=== PATIENT | female | born 1960 | race African-American/Black ===

== ENCOUNTER 2018-07-07 05:43 | Inpatient (IN) ==
[2018-07-06 13:26] LABS: Basophils % 0.5 % (0.0-0.8); Eosinophils # 0.1 10*3/uL (0.0-0.87); Eosinophils % 1.4 % (0.00-10.9); Hematocrit 38.3 VOL% (35.7-47.0); Immature Granulocytes % 0.3 %; Immature Granulocytes Absolute 0.02 #; Lymphocytes # 3.4 10*3/uL (1.4-4.0); Lymphocytes % 44.1 % (21.3-54.2); Mean Corpuscular HGB Conc 31.3 GM/DL (32-36); Mean Corpuscular Hemoglobin 27 PG (27-34); Mean Corpuscular Volume 87.2 FL (87-102); Mean Platelet Volume 10.2 FL (9.6-12.0); Monocytes # 0.3 10*3/uL (0.11-0.8); Monocytes % 3.4 % (1.7-12.7); Neutrophils # 3.8 10*3/uL (1.4-7.4); Neutrophils % 50.3 % (38.7-73.9); Platelet Count 264 T/CUMM (130-400); Red Blood Count 4.39 MC/CUMM (3.8-5.5); Red Cell Distribution Width 14.1 % (9.3-17.3); White Blood Count 7.6 T/CUMM (4-12)
[2018-07-06 13:31] LABS: Apearance,Urine CLEAR (Clear); Bilirubin,Urine Negative (Negative); Blood, Urine Negative (Negative); Glucose,Urine (UA) >=500 mg/dL (Negative); Ketones,Urine Negative (Negative); Nitrite,Urine Negative (Negative); Protein,Urine Negative; RBC,Urine <1 /HPF (0-4); Squamous Epithelial Cell,Urine Occasional /HPF (0-10); Urine Color Straw (Yellow); Urine Specific Gravity 1.009 (1.001-1.035); Urine Urobilinogen < 2.0 EU/DL (0.2-1.0); WBC,Urine <1 /HPF (0-6)
[2018-07-06 13:36] LABS: INR 0.9; Partial Thromboplastin Time 27.4 SECS (0-40)
[2018-07-06 13:50] LABS: Calcium 9.1 MG/DL (8.5-10.1); Osmolality,Calculated 283.7 MOS/KG (273-304); Potassium 4.3 MMOL/L (3.5-5.1)
[~2018-07-07 05:43] MED LIST: LACTATED RINGERS 1,000 ML IV SCH; PAPAVERINE 60 MG/2 ML VIAL ONE; SODIUM CHLORIDE 0.9% 1,000 ML IV PRN; TISSUE ADHESIVE 1 EACH APPLICATOR TOP ONE; VANCOMYCIN 1,000 MG VIAL ONE
[2018-07-07] MEDS ORDERED: CEFUROXIME 1,500 MG VIAL ONE (06:07)
[2018-07-07] MEDS ORDERED: DIAZEPAM 5 MG TABLET ONE (06:37)
[2018-07-07] MEDS ORDERED: PANTOPRAZOLE 40 MG TABLET PO ONE (06:37)
[2018-07-07] MEDS ORDERED: DIAZEPAM 5 MG TABLET PO STA (06:39)
[2018-07-07] MEDS ORDERED: PANTOPRAZOLE 40 MG TABLET PO STA (06:40)
[2018-07-07 07:36] LABS: ABG Base Excess 3.4 MMOL/L (-2.5-2.5); ABG HCO3 27.5 MMOL/L (20-26); ABG PCO2 41.9 MM HG (35-48); ABG PH 7.432 (7.35-7.45); ABG TCO2 25.2 MMOL/L (23-27); Glucose Heart Surgery 120 MG/DL (74-106); Hematocrit Heart Surgery 32.6 PERCENT (37-47); Hemoglobin Heart Surgery 10.5 G/DL (12.0-16.0); Ionized Calcium Arterial 1.15 MMOL/L (1.21-1.46); PCO2 Patient Temp Arterial 41.9 MMHG; PH Patient Temp Arterial 7.432; Patient Temperature 37 CELCIUS; Potassium Heart/CVR 3.4 MMOL/L (3.5-5.1); Sodium Heart/CVR 140 MMOL/L (135-145)
[2018-07-07] MEDS ORDERED: NITROPRUSSIDE 50 MG/2 ML VIAL ONE (07:44)
[2018-07-07] MEDS ORDERED: ALBUMIN 5% 12.5 GM/250 ML VIAL IV ONE (07:45)
[2018-07-07] MEDS ORDERED: EPINEPHrine 1 MG/10 ML SYRINGE ONE (07:45)
[2018-07-07] MEDS ORDERED: CALCIUM CHLORIDE 1,000 MG/10 ML SYRINGE IV ONE (07:45)
[2018-07-07] MEDS ORDERED: POTASSIUM CHLORIDE RIDER 100 ML IV ONE (07:45)
[2018-07-07] MEDS ORDERED: PHENYLEPHRINE DRIP 0 MG/0 ML PREMIX IV ONE (07:45)
[2018-07-07 07:51] LABS: Apearance,Urine CLEAR (Clear); Bilirubin,Urine Negative (Negative); Blood, Urine Negative (Negative); Glucose,Urine (UA) Negative (Negative); Ketones,Urine Negative (Negative); Nitrite,Urine Negative (Negative); Protein,Urine Negative; RBC,Urine 1 /HPF (0-4); Squamous Epithelial Cell,Urine Occasional /HPF (0-10); Urine Color Yellow (Yellow); Urine Specific Gravity 1.016 (1.001-1.035); Urine Urobilinogen < 2.0 EU/DL (0.2-1.0); WBC,Urine <1 /HPF (0-6)
[2018-07-07 09:31] LABS: Hematocrit Heart Surgery 19.2 PERCENT (37-47); PCO2 Patient Temp Venous 33.4 MM HG; PH Patient Temp Venous 7.508; PO2 Patient Temp Venous 35.3 MM HG; Potassium Heart/CVR 4.6 MMOL/L (3.5-5.1); VBG Base Excess 3.6 MEQ/L (0-4); VBG HCO3 27.4 MEQ/L (24-28); VBG PCO2 36.8 MMHG (41-51); VBG PH 7.478; VBG PO2 40.6 MMHG (17-40)
[2018-07-07 09:32] LABS: Hemoglobin Heart Surgery 6.1 G/DL (12.0-16.0)
[2018-07-07 10:00] LABS: Hematocrit Heart Surgery 20.4 PERCENT (37-47); Hemoglobin Heart Surgery 6.5 G/DL (12.0-16.0); PCO2 Patient Temp Venous 36.9 MM HG; PH Patient Temp Venous 7.471; PO2 Patient Temp Venous 40.1 MM HG; Potassium Heart/CVR 4.4 MMOL/L (3.5-5.1); VBG Base Excess 3.2 MEQ/L (0-4); VBG PCO2 36.9 MMHG (41-51); VBG PH 7.471; VBG PO2 40.1 MMHG (17-40)
[2018-07-07] MEDS ORDERED: TISSUE ADHESIVE 1 EACH APPLICATOR TOP ONE (10:06)
[2018-07-07 10:30] LABS: Hematocrit Heart Surgery 26.3 PERCENT (37-47); Hemoglobin Heart Surgery 8.4 G/DL (12.0-16.0); PCO2 Patient Temp Venous 40.4 MM HG; PH Patient Temp Venous 7.425; PO2 Patient Temp Venous 46.9 MM HG; Potassium Heart/CVR 4.3 MMOL/L (3.5-5.1); VBG PCO2 40.4 MMHG (41-51); VBG PH 7.425; VBG PO2 46.9 MMHG (17-40)
[2018-07-07] MEDS ORDERED: THROMBIN TOPICAL (RECOMBINANT) 5,000 UNIT VIAL TOP ONE (10:35)
[2018-07-07 11:42] LABS: ABG Base Excess -6.4 MMOL/L (-2.5-2.5); ABG HCO3 19.2 MMOL/L (20-26); ABG Oxygen Saturation 95.6 % (95-100); ABG PH 7.254 (7.35-7.45); ABG PO2 89.2 MM HG (80-95); ABG TCO2 19.1 MMOL/L (23-27); Glucose Heart Surgery 385 MG/DL (74-106); Hematocrit Heart Surgery 33.1 PERCENT (37-47); Hemoglobin Heart Surgery 10.7 G/DL (12.0-16.0); Ionized Calcium Arterial 1.37 MMOL/L (1.21-1.46); PH Patient Temp Arterial 7.254; PO2 Patient Temp Arterial 89.2 MM HG; Patient Temperature 37 CELCIUS; Potassium Heart/CVR 3.5 MMOL/L (3.5-5.1); Sodium Heart/CVR 135 MMOL/L (135-145)
[2018-07-07] MEDS ORDERED: CALCIUM CHLORIDE 1,000 MG/10 ML VIAL IV ONE ×2 (11:43→13:40)
[2018-07-07] MEDS ORDERED: DOBUTamine 500 MG/250 ML PREMIX IV ONE (12:00)
[2018-07-07] MEDS ORDERED: DEXTROSE 5% KCL 20 MEQ 20 MEQ/1,000 ML BAG IV ONE (12:53)
[2018-07-07] MEDS ORDERED: ALBUMIN 25% 25 GM/100 ML VIAL IV ONE (12:54)
[2018-07-07] MEDS ORDERED: PROTAMINE SULFATE 50 MG/5 ML VIAL IV ONE (12:54)
[2018-07-07] MEDS ORDERED: MANNITOL 12.5 GM/50 ML VIAL IV ONE (12:54)
[2018-07-07] MEDS ORDERED: SODIUM BICARBONATE 50 MEQ/50 ML SYRINGE IV ONE ×2 (12:54→13:40)
[2018-07-07] MEDS ORDERED: MAGNESIUM SULFATE 10 GM/20 ML VIAL IV ONE (12:54)
[2018-07-07] MEDS ORDERED: methylPREDNISolone SOD SUC 1,000 MG/8 ML VIAL ONE (12:54)
[2018-07-07] MEDS ORDERED: FUROSEMIDE 20 MG/2 ML VIAL ONE (12:54)
[2018-07-07] MEDS ORDERED: HEPARIN 10,000 UNIT/10 ML VIAL ONE (12:55)
[2018-07-07] MEDS ORDERED: MAGNESIUM SULF RIDER 2 GM in PREMIX 1 EACH IV PRN (13:04)
[2018-07-07] MEDS ORDERED: CALCIUM CHLORIDE 1,000 MG/10 ML SYRINGE IV PRN (13:04)
[2018-07-07] MEDS ORDERED: CHLORHEXIDINE 4% SOLN 118 ML BOTTLE TOP PRN (13:04)
[2018-07-07] MEDS ORDERED: MAGNESIUM SULF RIDER 4 GM in PREMIX 1 EACH IV PRN (13:04)
[2018-07-07] MEDS ORDERED: ACETAMINOPHEN 650 MG SUPP RECTAL PRN (13:04)
[2018-07-07] MEDS ORDERED: ONDANSETRON 4 MG/2 ML VIAL IV PRN (13:04)
[2018-07-07] MEDS ORDERED: DEXTROSE 50% 25 GM/50 ML SYRINGE IV PRN ×2 (13:04)
[2018-07-07] MEDS ORDERED: SUFentanil 250 MCG/5 ML AMP ONE (13:36)
[2018-07-07] MEDS ORDERED: MIDAZOLAM 10 MG/2 ML VIAL ONE (13:37)
[2018-07-07] MEDS ORDERED: ASPIRIN CHEW 81 MG TABLET PO ONE ×2 (13:38→13:49)
[2018-07-07] MEDS ORDERED: HEPARIN/NACL 0.9% 2 UNITS/ML 500 ML IV ONE (13:40)
[2018-07-07] MEDS ORDERED: SEVOFLURANE 1 UNIT/15 MINUTE INH ONE (13:40)
[2018-07-07] MEDS ORDERED: PHENYLEPHRINE DRIP 20 MG/250 ML PREMIX IV ONE (13:40)
[2018-07-07] MEDS ORDERED: MINERAL OIL/PETROLATUM OPH OINT 3.5 GM TUBE ONE (13:41)
[2018-07-07] MEDS ORDERED: AMINOCAPROIC ACID 5,000 MG/20 ML VIAL IV ONE (13:41)
[2018-07-07] MEDS ORDERED: ALBUTEROL INHALER 8 GM INH ONE (13:41)
[2018-07-07] MEDS ORDERED: VECURONIUM 10 MG VIAL IV ONE (13:41)
[2018-07-07] MEDS ORDERED: ETOMIDATE 40 MG/20 ML VIAL IV ONE (13:41)
[2018-07-07] MEDS ORDERED: PHENYLEPHRINE 1 MG/10 ML SYRINGE IV ONE (13:42)
[2018-07-07] MEDS ORDERED: SODIUM CHLORIDE 0.9% 1,000 ML IV ONE (13:42)
[2018-07-07] MEDS ORDERED: LACTATED RINGERS 1,000 ML IV ONE (13:42)
[2018-07-07] MEDS ORDERED: MILRINONE 20 MG/100 ML PREMIX IV ONE (13:49)
[2018-07-07 13:55] LABS: Basophils % 0.2 % (0.0-0.8); Eosinophils % 0.1 % (0.00-10.9); Hematocrit 36.1 VOL% (35.7-47.0); Immature Granulocytes % 0.9 %; Immature Granulocytes Absolute 0.17 #; Lymphocytes # 1.4 10*3/uL (1.4-4.0); Lymphocytes % 7.6 % (21.3-54.2); Mean Corpuscular HGB Conc 33.2 GM/DL (32-36); Mean Corpuscular Hemoglobin 29 PG (27-34); Mean Corpuscular Volume 87.6 FL (87-102); Mean Platelet Volume 10.5 FL (9.6-12.0); Monocytes # 0.6 10*3/uL (0.11-0.8); Monocytes % 3.1 % (1.7-12.7); Neutrophils # 16.4 10*3/uL (1.4-7.4); Neutrophils % 88.1 % (38.7-73.9); Platelet Count 147 T/CUMM (130-400); Red Blood Count 4.12 MC/CUMM (3.8-5.5); Red Cell Distribution Width 13.8 % (9.3-17.3); White Blood Count 18.6 T/CUMM (4-12)
[2018-07-07 14:05] LABS: ABG Base Excess -1.1 MMOL/L (-2.5-2.5); ABG HCO3 23.4 MMOL/L (20-26); ABG Oxygen Saturation 96.3 % (95-100); ABG PCO2 31.8 MM HG (35-48); ABG PH 7.449 (7.35-7.45); ABG PO2 78.8 MM HG (80-95); ABG TCO2 19.5 MMOL/L (23-27); Glucose Heart Surgery 303 MG/DL (74-106); Hematocrit Heart Surgery 36.2 PERCENT (37-47); Hemoglobin Heart Surgery 11.8 G/DL (12.0-16.0); Potassium Heart/CVR 3.5 MMOL/L (3.5-5.1)
[2018-07-07] MEDS: SODIUM CHLORIDE 0.45% 1,000 ML IV SCH ×2 (14:17→14:18)
[2018-07-07] MEDS: MILRINONE 20 MG/100 ML PREMIX IV SCH ×2 (14:18→21:59)
[2018-07-07 14:19] LABS: Blood Urea Nitrogen 10 MG/DL (7-18); Calcium 9.4 MG/DL (8.5-10.1); Glucose 297 MG/DL (74-106); Potassium 3.6 MMOL/L (3.5-5.1); Sodium 143 MMOL/L (136-145)
[2018-07-07] MEDS: ALBUMIN 5% 12.5 GM in PREMIX 1 EACH IV PRN ×3 (14:20→16:15)
[2018-07-07 14:27] LABS: Lactic Acid 5.1 MMOL/L (0.4-2.0)
[2018-07-07] MEDS: POTASSIUM CHLORIDE RIDER 20 MEQ in PREMIX 1 EACH IV PRN ×3 (14:29→22:56)
[2018-07-07 14:44] LABS: PT Patient Result 11.3 SECS; Partial Thromboplastin Time 33.1 SECS (0-40)
[2018-07-07] MEDS: SODIUM CHLORIDE 0.9% 250 ML IV PRN (15:00)
[2018-07-07] MEDS ORDERED: INSULIN REGULAR DRIP 100 ML IV PRN (15:00)
[2018-07-07] MEDS: POTASSIUM CHLORIDE RIDER 10 MEQ in PREMIX 1 EACH IV PRN (15:49)
[2018-07-07] MEDS: INSULIN REGULAR 100 UNIT/ML IV PRN ×2 (16:24→19:10)
[2018-07-07] MEDS ORDERED: LACTATED RINGERS 500 ML IV ONE (18:22)
[2018-07-07] MEDS: MORPHINE 4 MG/1 ML VIAL IV PRN (19:13)
[2018-07-07] MEDS: CHLORHEXIDINE 0.12% ORAL RINSE 60 ML BOTTLE SWISH/SPIT SCH (21:01)
[2018-07-07] MEDS: CEFUROXIME INJ 1,500 MG in SYRINGE 1 EACH IV SCH (21:01)
[2018-07-07 22:15] LABS: ABG Base Excess 1.5 MMOL/L (-2.5-2.5); ABG HCO3 25.7 MMOL/L (20-26); ABG Oxygen Saturation 96.4 % (95-100); ABG PCO2 41.1 MM HG (35-48); ABG PH 7.412 (7.35-7.45); ABG TCO2 23.6 MMOL/L (23-27); Glucose Heart Surgery 82 MG/DL (74-106); Hemoglobin Heart Surgery 10.7 G/DL (12.0-16.0); Potassium Heart/CVR 3.4 MMOL/L (3.5-5.1)
[2018-07-07 22:36] LABS: ABG Base Excess 1.8 MMOL/L (-2.5-2.5); ABG Oxygen Saturation 96.6 % (95-100); ABG PH 7.449 (7.35-7.45); ABG PO2 80.8 MM HG (80-95); ABG TCO2 23.1 MMOL/L (23-27); Glucose Heart Surgery 86 MG/DL (74-106); Hematocrit Heart Surgery 32.3 PERCENT (37-47); Hemoglobin Heart Surgery 10.5 G/DL (12.0-16.0); Potassium Heart/CVR 3.8 MMOL/L (3.5-5.1)
[2018-07-07 23:26] LABS: ABG Base Excess 0.7 MMOL/L (-2.5-2.5); ABG Oxygen Saturation 96.3 % (95-100); ABG PCO2 40.2 MM HG (35-48); ABG PH 7.407 (7.35-7.45); ABG PO2 83.4 MM HG (80-95); Glucose Heart Surgery 104 MG/DL (74-106); Hematocrit Heart Surgery 31.6 PERCENT (37-47); Hemoglobin Heart Surgery 10.2 G/DL (12.0-16.0); Potassium Heart/CVR 4.7 MMOL/L (3.5-5.1)
[2018-07-08] MEDS: MORPHINE 4 MG/1 ML VIAL IV PRN ×3 (03:29→16:52)
[2018-07-08] MEDS: SODIUM CHLORIDE 0.45% 1,000 ML IV SCH ×2 (03:37→10:37)
[2018-07-08 04:41] LABS: Basophils % 0.1 % (0.0-0.8); Hematocrit 29.9 VOL% (35.7-47.0); Hemoglobin 9.6 GM/DL (12.0-16.0); Immature Granulocytes % 0.7 %; Immature Granulocytes Absolute 0.14 #; Lymphocytes # 2.7 10*3/uL (1.4-4.0); Lymphocytes % 12.7 % (21.3-54.2); Mean Corpuscular HGB Conc 32.1 GM/DL (32-36); Mean Corpuscular Hemoglobin 28 PG (27-34); Mean Corpuscular Volume 88.2 FL (87-102); Mean Platelet Volume 11.1 FL (9.6-12.0); Monocytes # 0.8 10*3/uL (0.11-0.8); Monocytes % 3.8 % (1.7-12.7); Neutrophils # 17.5 10*3/uL (1.4-7.4); Neutrophils % 82.7 % (38.7-73.9); Platelet Count 122 T/CUMM (130-400); Red Blood Count 3.39 MC/CUMM (3.8-5.5); Red Cell Distribution Width 14.1 % (9.3-17.3); White Blood Count 21.2 T/CUMM (4-12)
[2018-07-08 04:51] LABS: Calcium 8.2 MG/DL (8.5-10.1); Potassium 4.5 MMOL/L (3.5-5.1)
[2018-07-08] MEDS: ALBUMIN 5% 12.5 GM in PREMIX 1 EACH IV PRN ×3 (05:43→09:37)
[2018-07-08] MEDS: SODIUM CHLORIDE 0.9% 250 ML IV PRN (05:44)
[2018-07-08 05:52] LABS: Band Neutrophils 3 % (0-10); Lymphocytes 10 % (20-55); Segmented Neutrophils 86 % (50-85)
[2018-07-08 05:53] LABS: Platelet Estimate Adequate; Total Cells Counted 100
[2018-07-08] MEDS ORDERED: LACTATED RINGERS 500 ML IV ONE (08:15)
[2018-07-08] MEDS ORDERED: METOCLOPRAMIDE 10 MG/10 ML UDCUP PO PRN (08:36)
[2018-07-08] MEDS ORDERED: SIMETHICONE CHEW 125 MG TABLET PO PRN (08:37)
[2018-07-08] MEDS: FUROSEMIDE 40 MG TABLET PO SCH (08:55)
[2018-07-08] MEDS: CLOPIDOGREL 75 MG TABLET PO SCH (09:36)
[2018-07-08] MEDS: PANTOPRAZOLE 40 MG VIAL IV SCH (09:37)
[2018-07-08] MEDS: ASPIRIN EC 325 MG TABLET PO SCH (09:37)
[2018-07-08] MEDS: CHLORHEXIDINE 0.12% ORAL RINSE 60 ML BOTTLE SWISH/SPIT SCH ×2 (09:37→21:15)
[2018-07-08] MEDS: CEFUROXIME INJ 1,500 MG in SYRINGE 1 EACH IV SCH ×2 (09:43→20:12)
[2018-07-08] MEDS ORDERED: DOBUTamine 500 MG/250 ML PREMIX IV ONE (11:50)
[2018-07-08] MEDS: DOBUTamine 500 MG/250 ML PREMIX IV SCH (11:57)
[2018-07-08] MEDS: INSULIN REGULAR 100 UNIT/ML SUBCUT SCH ×4 (12:15→23:40)
[2018-07-08] MEDS: MILRINONE 20 MG/100 ML PREMIX IV SCH (14:10)
[2018-07-08] MEDS ORDERED: CALCIUM GLUCONATE 1,000 MG in SODIUM CHLORIDE 0.9% 100 ML IV ONE (14:14)
[2018-07-08] MEDS: oxyCODONE/ACETAMINOPHEN 5-325 MG TABLET PO PRN ×2 (14:32→20:13)
[2018-07-08 16:55] LABS: ABG Base Excess -2.5 MMOL/L (-2.5-2.5); ABG HCO3 22.2 MMOL/L (20-26); ABG Oxygen Saturation 88.5 % (95-100); ABG PCO2 33.4 MM HG (35-48); ABG PH 7.415 (7.35-7.45); ABG PO2 57.5 MM HG (80-95); ABG TCO2 19.7 MMOL/L (23-27)
[2018-07-08 17:18] LABS: Lactic Acid 3.3 MMOL/L (0.4-2.0)
[2018-07-08] MEDS: AMITRIPTYLINE 25 MG TABLET PO SCH (20:13)
[2018-07-08] MEDS: ATORVASTATIN 40 MG TABLET PO SCH (20:13)
[2018-07-08] MEDS: MORPHINE 10 MG/1 ML VIAL IV PRN (23:31)
[2018-07-09 03:19] LABS: Basophils % 0.1 % (0.0-0.8); Hematocrit 27.9 VOL% (35.7-47.0); Hemoglobin 8.7 GM/DL (12.0-16.0); Immature Granulocytes % 0.6 %; Immature Granulocytes Absolute 0.11 #; Lymphocytes # 4.7 10*3/uL (1.4-4.0); Lymphocytes % 25.6 % (21.3-54.2); Mean Corpuscular HGB Conc 31.2 GM/DL (32-36); Mean Corpuscular Hemoglobin 28 PG (27-34); Mean Corpuscular Volume 90.9 FL (87-102); Mean Platelet Volume 11.3 FL (9.6-12.0); Monocytes # 0.8 10*3/uL (0.11-0.8); Monocytes % 4.2 % (1.7-12.7); Neutrophils # 12.9 10*3/uL (1.4-7.4); Neutrophils % 69.5 % (38.7-73.9); Red Blood Count 3.07 MC/CUMM (3.8-5.5); Red Cell Distribution Width 14.6 % (9.3-17.3); White Blood Count 18.5 T/CUMM (4-12)
[2018-07-09 03:21] LABS: Platelet Count 96 T/CUMM (130-400)
[2018-07-09 03:44] LABS: Calcium 7.8 MG/DL (8.5-10.1); Osmolality,Calculated 290.1 MOS/KG (273-304); Potassium 4.3 MMOL/L (3.5-5.1)
[2018-07-09 03:52] LABS: Hypochromasia 1+; Platelet Estimate Decreased; Polychromasia Few
[2018-07-09] MEDS: MORPHINE 10 MG/1 ML VIAL IV PRN ×2 (03:55→09:54)
[2018-07-09] MEDS: CLORAZEPATE 3.75 MG TABLET PO PRN ×2 (03:55→09:26)
[2018-07-09] MEDS: INSULIN REGULAR 100 UNIT/ML SUBCUT SCH ×5 (04:58→21:16)
[2018-07-09] MEDS: POTASSIUM CHLORIDE RIDER 20 MEQ in PREMIX 1 EACH IV PRN (04:59)
[2018-07-09] MEDS: ALBUTEROL/IPRATROPIUM 3 ML NEB RESP TX SCH ×6 (05:27→23:03)
[2018-07-09] MEDS ORDERED: ALBUTEROL/IPRATROPIUM 3 ML NEB RESP TX SCH (07:00)
[2018-07-09] MEDS ORDERED: FUROSEMIDE 40 MG/4 ML VIAL IV ONE (07:03)
[2018-07-09] MEDS ORDERED: MIDAZOLAM 2 MG/2 ML VIAL IV ONE (09:26)
[2018-07-09] MEDS: MIDAZOLAM 2 MG/2 ML VIAL IV PRN (09:54)
[2018-07-09] MEDS ORDERED: ACETYLCYSTEINE 20% 800 MG/4 ML VIAL RESP TX ONE (10:00)
[2018-07-09] MEDS: methylPREDNISolone SOD SUC 40 MG/1 ML VIAL IV SCH ×2 (10:06→18:17)
[2018-07-09] MEDS: ASPIRIN EC 325 MG TABLET PO SCH (10:07)
[2018-07-09] MEDS: CLOPIDOGREL 75 MG TABLET PO SCH (10:07)
[2018-07-09] MEDS: PANTOPRAZOLE 40 MG VIAL IV SCH (10:07)
[2018-07-09] MEDS: ALPRAZolam 0.5 MG TABLET PO SCH ×3 (10:20→21:15)
[2018-07-09] MEDS ORDERED: ceFAZolin 1,000 MG in SYRINGE 1 EACH IV ONE (10:22)
[2018-07-09] MEDS ORDERED: ceFAZolin 1,000 MG VIAL IRRIG ONE (10:22)
[2018-07-09] MEDS: FUROSEMIDE 40 MG TABLET PO SCH (10:30)
[2018-07-09] MEDS: CHLORHEXIDINE 0.12% ORAL RINSE 60 ML BOTTLE SWISH/SPIT SCH ×2 (10:30→21:21)
[2018-07-09 11:19] LABS: ABG Base Excess -2.1 MMOL/L (-2.5-2.5); ABG HCO3 22.3 MMOL/L (20-26); ABG Oxygen Saturation 77.4 % (95-100); ABG PCO2 41.6 MM HG (35-48); ABG PH 7.355 (7.35-7.45); ABG PO2 47.9 MM HG (80-95); ABG TCO2 21.5 MMOL/L (23-27)
[2018-07-09] MEDS ORDERED: PROPOFOL 1,000 MG/100 ML BOTTLE IV ONE (11:29)
[2018-07-09] MEDS ORDERED: ETOMIDATE 20 MG/10 ML VIAL IV ONE (11:33)
[2018-07-09] MEDS ORDERED: RACEPINEPHRINE 0.5 ML NEB RESP TX ONE (11:36)
[2018-07-09 12:00] LABS: ABG Base Excess -2.7 MMOL/L (-2.5-2.5); ABG HCO3 22.1 MMOL/L (20-26); ABG Oxygen Saturation 95.1 % (95-100); ABG PCO2 41.6 MM HG (35-48); ABG PH 7.346 (7.35-7.45); ABG PO2 83.6 MM HG (80-95); ABG TCO2 21.2 MMOL/L (23-27)
[2018-07-09] MEDS: BUDESONIDE/FORMOTEROL 160-4.5 INHALER 6 GM INH SCH ×2 (12:05→21:23)
[2018-07-09] MEDS: PROPOFOL 1,000 MG/100 ML BOTTLE IV SCH ×3 (12:29→21:18)
[2018-07-09] MEDS: MORPHINE 4 MG/1 ML VIAL IV PRN (13:57)
[2018-07-09 14:16] LABS: ABG Base Excess -0.8 MMOL/L (-2.5-2.5); ABG HCO3 23.7 MMOL/L (20-26); ABG Oxygen Saturation 96.3 % (95-100); ABG PCO2 40.5 MM HG (35-48); ABG PH 7.384 (7.35-7.45); ABG PO2 88.8 MM HG (80-95); ABG TCO2 22.3 MMOL/L (23-27)
[2018-07-09] MEDS: MILRINONE 20 MG/100 ML PREMIX IV SCH (14:42)
[2018-07-09] MEDS: DOBUTamine 500 MG/250 ML PREMIX IV SCH (15:26)
[2018-07-09] MEDS: ATORVASTATIN 40 MG TABLET PO SCH (21:15)
[2018-07-09] MEDS: AMITRIPTYLINE 25 MG TABLET PO SCH (21:16)
[2018-07-10] MEDS: INSULIN REGULAR 100 UNIT/ML SUBCUT SCH ×6 (02:04→21:59)
[2018-07-10] MEDS: methylPREDNISolone SOD SUC 40 MG/1 ML VIAL IV SCH ×3 (02:11→18:34)
[2018-07-10] MEDS: ALBUTEROL/IPRATROPIUM 3 ML NEB RESP TX SCH ×5 (02:53→19:20)
[2018-07-10 04:51] LABS: Basophils % 0.1 % (0.0-0.8); Hematocrit 26.7 VOL% (35.7-47.0); Hemoglobin 8.9 GM/DL (12.0-16.0); Immature Granulocytes % 0.7 %; Lymphocytes # 1.7 10*3/uL (1.4-4.0); Lymphocytes % 11.5 % (21.3-54.2); Mean Corpuscular HGB Conc 33.3 GM/DL (32-36); Mean Corpuscular Hemoglobin 29 PG (27-34); Mean Corpuscular Volume 87.5 FL (87-102); Mean Platelet Volume 12.4 FL (9.6-12.0); Monocytes # 0.4 10*3/uL (0.11-0.8); Monocytes % 2.6 % (1.7-12.7); Neutrophils # 12.3 10*3/uL (1.4-7.4); Neutrophils % 85.1 % (38.7-73.9); Platelet Count 95 T/CUMM (130-400); Red Blood Count 3.05 MC/CUMM (3.8-5.5); Red Cell Distribution Width 14.3 % (9.3-17.3); White Blood Count 14.5 T/CUMM (4-12)
[2018-07-10] MEDS: PROPOFOL 1,000 MG/100 ML BOTTLE IV SCH ×4 (05:07→15:55)
[2018-07-10 05:12] LABS: Calcium 8.3 MG/DL (8.5-10.1); Osmolality,Calculated 288.5 MOS/KG (273-304); Potassium 4.4 MMOL/L (3.5-5.1)
[2018-07-10 05:34] LABS: Hypochromasia 1+; Lymphocytes 11 % (20-55); Segmented Neutrophils 87 % (50-85); Total Cells Counted 100
[2018-07-10 05:35] LABS: Microcytosis 1+; Platelet Estimate Decreased
[2018-07-10] MEDS ORDERED: SODIUM CHLORIDE 0.9% 1,000 ML IV PRN (06:34)
[2018-07-10 06:51] LABS: ABG Base Excess -0.4 MMOL/L (-2.5-2.5); ABG HCO3 24.1 MMOL/L (20-26); ABG Oxygen Saturation 99.8 % (95-100); ABG PH 7.462 (7.35-7.45)
[2018-07-10] MEDS ORDERED: FUROSEMIDE 40 MG/4 ML VIAL IV ONE (08:00)
[2018-07-10] MEDS: DOBUTamine 500 MG/250 ML PREMIX IV SCH (08:35)
[2018-07-10] MEDS: PANTOPRAZOLE 40 MG VIAL IV SCH (09:23)
[2018-07-10] MEDS: ASPIRIN 325 MG TABLET PO SCH (09:23)
[2018-07-10] MEDS: ALPRAZolam 0.5 MG TABLET PO SCH ×3 (09:23→21:59)
[2018-07-10] MEDS: FUROSEMIDE 40 MG TABLET PO SCH (09:23)
[2018-07-10] MEDS: CHLORHEXIDINE 0.12% ORAL RINSE 60 ML BOTTLE SWISH/SPIT SCH (09:45)
[2018-07-10] MEDS: BUDESONIDE/FORMOTEROL 160-4.5 INHALER 6 GM INH SCH ×2 (09:45→21:54)
[2018-07-10] MEDS ORDERED: HEPARIN/NACL 0.9% 2 UNITS/ML 1,000 ML IV ONE (11:01)
[2018-07-10] MEDS ORDERED: LIDOCAINE 1% 20 ML VIAL ONE (11:17)
[2018-07-10] MEDS ORDERED: ceFAZolin 1,000 MG VIAL ONE ×2 (11:20→11:23)
[2018-07-10] MEDS ORDERED: TISSUE ADHESIVE 1 EACH APPLICATOR TOP ONE (11:23)
[2018-07-10] MEDS ORDERED: PROPOFOL 0 MG/0 ML BOTTLE IV ONE (11:52)
[2018-07-10] MEDS: MILRINONE 20 MG/100 ML PREMIX IV SCH (13:38)
[2018-07-10] MEDS ORDERED: FUROSEMIDE 40 MG/4 ML VIAL ONE (18:15)
[2018-07-10] MEDS: ceFAZolin 1,000 MG in SYRINGE 1 EACH IV SCH (18:39)
[2018-07-10] MEDS: ATORVASTATIN 40 MG TABLET PO SCH (21:59)
[2018-07-10] MEDS: AMITRIPTYLINE 25 MG TABLET PO SCH (21:59)
[2018-07-11] MEDS: ALBUTEROL/IPRATROPIUM 3 ML NEB RESP TX SCH ×7 (02:24→23:20)
[2018-07-11] MEDS: CHLORHEXIDINE 0.12% ORAL RINSE 60 ML BOTTLE SWISH/SPIT SCH ×3 (02:59→21:27)
[2018-07-11] MEDS: INSULIN REGULAR 100 UNIT/ML SUBCUT SCH ×7 (03:18→23:59)
[2018-07-11] MEDS: methylPREDNISolone SOD SUC 40 MG/1 ML VIAL IV SCH ×3 (03:19→17:50)
[2018-07-11] MEDS ORDERED: ceFAZolin 1,000 MG in SYRINGE 1 EACH IV SCH (04:00)
[2018-07-11] MEDS: ceFAZolin 1,000 MG in SYRINGE 1 EACH IV SCH (05:04)
[2018-07-11 05:48] LABS: ABG Base Excess 3.1 MMOL/L (-2.5-2.5); ABG HCO3 25.9 MMOL/L (20-26); ABG Oxygen Saturation 97.3 % (95-100); ABG PCO2 33.5 MM HG (35-48); ABG PH 7.506 (7.35-7.45); ABG PO2 98.1 MM HG (80-95); ABG TCO2 26.9 MMOL/L (23-27)
[2018-07-11 06:03] LABS: Basophils % 0.1 % (0.0-0.8); Hematocrit 32.5 VOL% (35.7-47.0); Immature Granulocytes % 1.2 %; Immature Granulocytes Absolute 0.19 #; Lymphocytes # 1.6 10*3/uL (1.4-4.0); Lymphocytes % 9.9 % (21.3-54.2); Mean Corpuscular HGB Conc 32.9 GM/DL (32-36); Mean Corpuscular Hemoglobin 29 PG (27-34); Mean Corpuscular Volume 86.9 FL (87-102); Mean Platelet Volume 12.5 FL (9.6-12.0); Monocytes # 0.6 10*3/uL (0.11-0.8); Monocytes % 4.1 % (1.7-12.7); NRBC # 0.02 10*3/uL; Neutrophils # 13.3 10*3/uL (1.4-7.4); Neutrophils % 84.7 % (38.7-73.9); Red Cell Distribution Width 13.7 % (9.3-17.3); White Blood Count 15.7 T/CUMM (4-12)
[2018-07-11 06:07] LABS: Calcium 7.8 MG/DL (8.5-10.1); Potassium 3.7 MMOL/L (3.5-5.1)
[2018-07-11 06:15] LABS: Red Blood Count 3.74 MC/CUMM (3.8-5.5)
[2018-07-11 06:16] LABS: Hemoglobin 10.7 GM/DL (12.0-16.0); Platelet Count 119 T/CUMM (130-400)
[2018-07-11] MEDS: ASPIRIN 325 MG TABLET PO SCH (09:03)
[2018-07-11] MEDS: ALPRAZolam 0.5 MG TABLET PO SCH ×3 (09:03→21:25)
[2018-07-11] MEDS: FUROSEMIDE 40 MG TABLET PO SCH (09:03)
[2018-07-11] MEDS: PANTOPRAZOLE 40 MG VIAL IV SCH (09:04)
[2018-07-11] MEDS: BUDESONIDE/FORMOTEROL 160-4.5 INHALER 6 GM INH SCH ×2 (09:04→21:27)
[2018-07-11] MEDS: METOPROLOL TARTRATE 25 MG TABLET PO SCH ×2 (11:26→21:26)
[2018-07-11] MEDS: PROPOFOL 1,000 MG/100 ML BOTTLE IV SCH ×2 (13:04→21:46)
[2018-07-11] MEDS: POTASSIUM CHLORIDE RIDER 20 MEQ in PREMIX 1 EACH IV PRN (16:25)
[2018-07-11] MEDS: POTASSIUM CHLORIDE RIDER 10 MEQ in PREMIX 1 EACH IV PRN (17:26)
[2018-07-11] MEDS: MORPHINE 4 MG/1 ML VIAL IV PRN (17:47)
[2018-07-11] MEDS: ATORVASTATIN 40 MG TABLET PO SCH (21:25)
[2018-07-11] MEDS: AMITRIPTYLINE 25 MG TABLET PO SCH (21:26)
[2018-07-12] MEDS: ALBUTEROL/IPRATROPIUM 3 ML NEB RESP TX SCH ×6 (03:30→23:15)
[2018-07-12] MEDS: methylPREDNISolone SOD SUC 40 MG/1 ML VIAL IV SCH ×3 (05:28→17:28)
[2018-07-12] MEDS: INSULIN REGULAR 100 UNIT/ML SUBCUT SCH ×5 (05:29→20:08)
[2018-07-12 05:57] LABS: ABG Base Excess 2.7 MMOL/L (-2.5-2.5); ABG HCO3 26.8 MMOL/L (20-26); ABG Oxygen Saturation 98.8 % (95-100); ABG PH 7.453 (7.35-7.45); ABG TCO2 23.7 MMOL/L (23-27)
[2018-07-12] MEDS ORDERED: FUROSEMIDE 40 MG/4 ML VIAL IV ONE (06:36)
[2018-07-12] MEDS: PROPOFOL 1,000 MG/100 ML BOTTLE IV SCH ×2 (07:07→12:52)
[2018-07-12] MEDS: MIDAZOLAM 2 MG/2 ML VIAL IV PRN ×2 (07:35→07:37)
[2018-07-12] MEDS: MORPHINE 10 MG/1 ML VIAL IV PRN ×2 (07:38→07:50)
[2018-07-12] MEDS: METOPROLOL TARTRATE 25 MG TABLET PO SCH ×2 (09:15→21:08)
[2018-07-12] MEDS: LISINOPRIL 2.5 MG TABLET PO SCH (09:15)
[2018-07-12] MEDS: PANTOPRAZOLE 40 MG VIAL IV SCH (09:15)
[2018-07-12] MEDS: ALPRAZolam 0.5 MG TABLET PO SCH ×3 (09:15→21:08)
[2018-07-12] MEDS: ASPIRIN 325 MG TABLET PO SCH (09:15)
[2018-07-12] MEDS: FUROSEMIDE 40 MG TABLET PO SCH (09:15)
[2018-07-12] MEDS: BUDESONIDE/FORMOTEROL 160-4.5 INHALER 6 GM INH SCH ×2 (09:17→21:08)
[2018-07-12] MEDS: CHLORHEXIDINE 0.12% ORAL RINSE 60 ML BOTTLE SWISH/SPIT SCH ×2 (09:17→21:08)
[2018-07-12] MEDS: MORPHINE 4 MG/1 ML VIAL IV PRN ×3 (11:34→18:21)
[2018-07-12 11:42] VITALS: BP 122/56
[2018-07-12] MEDS: AMITRIPTYLINE 25 MG TABLET PO SCH (21:07)
[2018-07-12] MEDS: ATORVASTATIN 40 MG TABLET PO SCH (21:08)
[2018-07-13] MEDS: INSULIN REGULAR 100 UNIT/ML SUBCUT SCH ×3 (00:03→10:52)
[2018-07-13] MEDS: methylPREDNISolone SOD SUC 40 MG/1 ML VIAL IV SCH ×2 (02:25→09:03)
[2018-07-13] MEDS: oxyCODONE/ACETAMINOPHEN 5-325 MG TABLET PO PRN (02:27)
[2018-07-13] MEDS: ALBUTEROL/IPRATROPIUM 3 ML NEB RESP TX SCH ×3 (03:12→10:43)
[2018-07-13 05:10] LABS: Osmolality,Calculated 290.4 MOS/KG (273-304); Potassium 4.3 MMOL/L (3.5-5.1)
[2018-07-13] MEDS: MORPHINE 4 MG/1 ML VIAL IV PRN (05:32)
[2018-07-13] MEDS: POTASSIUM CHLORIDE RIDER 20 MEQ in PREMIX 1 EACH IV PRN (05:36)
[2018-07-13] MEDS ORDERED: METOPROLOL TARTRATE 25 MG TABLET PO SCH (09:00)
[2018-07-13] MEDS: PANTOPRAZOLE 40 MG VIAL IV SCH (09:03)
[2018-07-13] MEDS: LISINOPRIL 2.5 MG TABLET PO SCH (09:04)
[2018-07-13] MEDS: ASPIRIN 325 MG TABLET PO SCH (09:04)
[2018-07-13] MEDS: BUDESONIDE/FORMOTEROL 160-4.5 INHALER 6 GM INH SCH (09:04)
[2018-07-13] MEDS: FUROSEMIDE 40 MG TABLET PO SCH (09:04)
[2018-07-13] MEDS: ALPRAZolam 0.5 MG TABLET PO SCH (09:04)
[2018-07-13] MEDS: CHLORHEXIDINE 0.12% ORAL RINSE 60 ML BOTTLE SWISH/SPIT SCH (09:05)
== END 2018-07-13 11:35 | DRG 3 ==
LOC: N.SDSINP 05:43 → N.CVR 08:23 → N.ICU 07-08 09:30
PROVIDERS: ADMIT Thoracic Surgery (Cardiothoracic Vascular Surgery); ATTEND Thoracic Surgery (Cardiothoracic Vascular Surgery)